=== PATIENT | male | born 1940 | race American Indian/Alaskan Native ===

== ENCOUNTER 2016-08-12 09:51 | Day surgery (SDC) | payer MEDICARE, OTHER ==
[2016-08-12 10:46] VITALS: BMI 29.8
[2016-08-12] MEDS ORDERED: Propofol 10 mg/ml Inj (20 ML) ONE (11:06)
[2016-08-12] MEDS ORDERED: Etomidate 20 mg/10ml Inj IV ONE (11:06)
[2016-08-12] MEDS ORDERED: Lidocaine 1% Inj (20ml) ONE (11:07)
[2016-08-12] MEDS ORDERED: Atropine 0.4 mg/ml Inj (1 mL) ONE ×2 (11:26→11:33)
[2016-08-12] MEDS ORDERED: Sodium Chloride 0.9% 1,000 ML IV SCH (12:00)
--- NOTE | 2016-08-12 12:41 | CARD ---
APPROVED REPORT EKG Measurement Heart [id number] <Conclusion> Sinus rhythm with 1st degree AV block Right bundle branch block Left anterior fascicular block Bifascicular block Minimal voltage criteria for LVH, may be normal variant Abnormal ECG
[2016-08-12 13:49] VITALS: BP 151/86; PULSE 77; RESP 15; TEMP 98.6; O2SAT 98
== END 2016-08-12 13:41 | disposition home or self-care (01) ==
LOC: ENDO 09:51
PROVIDERS: ATTEND Internal Medicine Gastroenterology
DX: K57.30 Diverticulosis of large intestine without perforation or abscess without bleeding (principal); R19.4 Change in bowel habit; K64.8 Other hemorrhoids; K63.89 Other specified diseases of intestine; E11.9 Type 2 diabetes mellitus without complications; I10 Essential (primary) hypertension
CPT/HCPCS: 45378; 82948; 93005; J0461; J2704; J7040 ×2